=== PATIENT | female | born 1940 | race Caucasian/White ===

== ENCOUNTER → 2016-08-11 | Day surgery (SDC) | payer MEDICARE, OTHER ==
[~2016-08-11] MED LIST: ACETAMINOPHEN PO; ADVAIR 1001 DISK W/D INH; ALLEGRA PO; ASPIRIN PO; CALCIUM 500 + D1 TAB; COREG PO; LIPITOR PO; NITROGLYGERIN0.4 MG SL; NORVASC PO; OYSTER CALCIUM500 MG PO; OYSTER SHELL C1 EAC1 PO; PREMARIN; PROTONIX20 MG PO; TYLENOL EXTRA500 M1 PO; VIT E PO; VITAMIN C PO; VITAMIN C1000 M2 PO; VITAMIN D 4001 UDTAB PO; VITAMIN D31000 UNIT PO; VITAMIN D35000 UNIT PO; VITAMIN D5000 UNIT PO; VITAMIN D50000 UNIT PO
--- NOTE | ~2016-08-11 | OR ---
Unit #: [id number] #: [id number] Patient: LAISHA FIGUEROA [id number] [address] [address] [id number] O MR#: [id number] NAME: LAISHA FIGUEROA ROOM: Date of Procedure: 08/11/2016 Admission Date: 08/11/2016 Surgeon: Mason Chapa M.D. : 1940 Attending Physician: Mason Chapa M.D. Primary Care Physician: Janie Walton M.D. [facility]ENTER OPERATIVE NOTE PROCEDURE PERFORMED Lumbar epidural steroid injection under x-ray guided needle placement with provider administered conscious sedation. PREOPERATIVE DIAGNOSES 1. Acute lumbar radiculitis. 2. Spinal stenosis, lumbosacral spine. 3. Degenerative joint disease, lumbosacral spine. 4. Degenerative disk disease, lumbosacral spine. INDICATIONS FOR PROCEDURE The patient presents today with longstanding history of chronic lumbar radicular pain secondary to her underlying degenerative processes. She is generally fairly well managed medically, but does occasionally experience exacerbations, which to date have only responded to epidural steroid injections. Her usual amount of relief is 80% for approximately 8 to 10 weeks. She presents today with a history of equal relief from her epidural steroid injection approximately 3 months ago. Over the course of the past 2 to 4 weeks, she is experiencing crescendo pattern return of her pain in her usual pattern, which had broken through her ongoing continuous conservative measures. It has reached a point where it is now negatively impacting her activities of daily living. She presents today requesting an epidural steroid injection. After discussing risks and benefits of proceeding today with a lumbar approach epidural steroid injection, the patient agreed this would be appropriate course of action. DESCRIPTION OF PROCEDURE She was then taken to the operating room, where she was prepped and draped in a sterile manner. Standard monitors were applied. She was sedated with 2 mg of IV Versed and lumbar epidural space accessed at the L4-L5 level using loss of resistance technique and x-ray guidance. Needle placement was confirmed with injection of 2 mL of Omnipaque. Following successful needle placement confirmation, the patient received an injectate containing 4 mL normal saline and 80 mg of methylprednisolone. She tolerated this procedure well. She was discharged home with followup instructions, which include an offer to return to this clinic as early as 11/03/2016 if we could be of further service to her. Dictated by... Rogerio Christopher/rain Unit #: [id number] #: [id number] Patient: LAISHA FIGUEROA TD: 08/12/2016 00:03 JOB #: [id number] [facility] OPERATIVE NOTE Page 1 of 1 X Noel Chapa MD X PROCEDURE OPERATIVE NOTE
== END | disposition home or self-care (01) ==
LOC: CCSC 09:16
DX: G89.29 Other chronic pain (principal); M51.17 Intervertebral disc disorders with radiculopathy, lumbosacral region; M48.07 Spinal stenosis, lumbosacral region
CPT/HCPCS: J1040; J2250

== ENCOUNTER → 2016-11-03 | Day surgery (SDC) | payer MEDICARE, OTHER ==
--- NOTE | ~2016-11-03 | OR ---
Unit #: [id number] #: [id number] Patient: LAISHA FIGUEROA [id number] [address] [place], [place] [address] [id number] O MR#: [id number] NAME: LAISHA FIGUEROA ROOM: Date of Procedure: 11/03/2016 Admission Date: 11/03/2016 Surgeon: Mason Chapa M.D. : 1940 Attending Physician: Noel Chapa Primary Care Physician: Janie Walton M.D. [facility]ENTER OPERATIVE NOTE PROCEDURE PERFORMED Lumbar epidural steroid injection under x-ray guided needle placement with provider administered conscious sedation. PREOPERATIVE DIAGNOSES 1. Acute lumbar radiculitis. 2. Spinal stenosis, lumbosacral spine. 3. Degenerative joint disease, lumbosacral spine. 4. Degenerative disk disease, lumbosacral spine. INDICATIONS FOR PROCEDURE The patient presents today with longstanding history of chronic lumbar radicular pain secondary to her underlying degenerative processes. She is generally fairly well managed medically with ongoing continuous therapy consisting of medications and self-directed activity. She does occasionally experience exacerbations, which break through her ongoing continuous measures and to date have only responded to epidural steroid injections. Her usual amount of relief is approximately 80% to 100% for 6 to 8 weeks. She presents today having just such an exacerbation which is consistent with past exacerbations and is advancing in a crescendo pattern again breaking through her ongoing continuous measures. After discussing risks and benefits of proceeding today with a lumbar approach epidural steroid injection, the patient agreed this would be the appropriate course of action. DESCRIPTION OF PROCEDURE She was then taken to the operating room, where she was prepped and draped in sterile manner. Standard monitors were applied. She was sedated with 2 mg of IV Versed and required an additional 1 mL of IV fentanyl throughout the duration of procedure. Lumbar epidural space accessed at L4-L5 level using loss of resistance technique and x-ray guidance. Needle placement was confirmed with injection of 2 mL of Omnipaque. There was good superior and inferior flow at this L4-L5 needle placement. Following successful needle placement at the L4-L5 level with a total x-ray time of 7 seconds, the patient received an injectate containing 4 mL normal saline and 80 mg of methylprednisolone. She tolerated this procedure well. She was discharged home with followup instructions, which include an offer to return to this clinic on 01/10/2017 if we could be of further service to her. Dictated by... Mason Chapa M.D. Unit #: [id number] #: [id number] Patient: LAISHA FIGUEROA JRG/modl TD: 11/03/2016 14:11 JOB #: [id number] [facility] OPERATIVE NOTE Page 1 of 1 X Noel Chapa MD X PROCEDURE OPERATIVE NOTE
== END | disposition home or self-care (01) ==
LOC: CCSC 12:07
DX: G89.29 Other chronic pain (principal); M51.17 Intervertebral disc disorders with radiculopathy, lumbosacral region; M48.07 Spinal stenosis, lumbosacral region; M47.27 Other spondylosis with radiculopathy, lumbosacral region; I25.10 Atherosclerotic heart disease of native coronary artery without angina pectoris; J43.9 Emphysema, unspecified; I50.9 Heart failure, unspecified; Z85.41 Personal history of malignant neoplasm of cervix uteri; Z85.828 Personal history of other malignant neoplasm of skin; Z87.442 Personal history of urinary calculi; Z88.8 Allergy status to other drugs, medicaments and biological substances; Z79.82 Long term (current) use of aspirin; Z79.51 Long term (current) use of inhaled steroids; Z79.899 Other long term (current) drug therapy; Z90.49 Acquired absence of other specified parts of digestive tract; Z90.710 Acquired absence of both cervix and uterus; Z96.29 Presence of other otological and audiological implants; Z98.890 Other specified postprocedural states
CPT/HCPCS: J1040; J2250; J3010

== ENCOUNTER → 2017-01-10 | Day surgery (SDC) | payer MEDICARE, OTHER ==
--- NOTE | ~2017-01-10 | OR ---
Unit #: [id number] #: [id number] Patient: LAISHA FIGUEROA [id number] [address] [place], [place] [address] [id number] O MR#: [id number] NAME: LAISHA FIGUEROA. ROOM: Date of Procedure: 01/10/2017 Admission Date: 01/10/2017 Surgeon: Mason Chapa M.D. : 1940 Attending Physician: Noel Chapa Primary Care Physician: Janie Walton M.D. [facility] CENTER OPERATIVE NOTE PROCEDURE PERFORMED Lumbar epidural steroid injection under x-ray guided needle placement with provider administered conscious sedation. PREOPERATIVE DIAGNOSES 1. Acute lumbar radiculitis. 2. Spinal stenosis, lumbosacral spine. 3. Degenerative joint disease, lumbosacral spine. 4. Degenerative disk disease, lumbosacral spine. INDICATIONS FOR PROCEDURE The patient presents today with longstanding history of chronic lumbar radicular pain secondary to her underlying degenerative processes. She is generally fairly well managed medically, but does occasionally experience exacerbations, which breakthrough her ongoing continuous measures, which include medical management and self-directed physical activity. She is currently experiencing just such an exacerbation. Her usual amount of relief is 60% to 80% with occasional improvement to 100% for 6 to 8 weeks. She presents today with a 2-week history of exacerbation, which is advancing in a crescendo pattern and has begun to negatively impact her activities of daily living. This exacerbation is consistent with previous patterns as well as her x-ray studies. After discussing risks and benefits of proceeding today with a lumbar approach epidural steroid injection with the potential for a dual needle technique, the patient agreed this would be the appropriate course of action. DESCRIPTION OF PROCEDURE She was then taken to the operating room, where she was prepped and draped in a sterile manner. Standard monitors were applied. She was sedated with 2 mg of IV Versed and lumbar epidural space accessed at the L4-L5 level. Dye flow at this L4-L5 access point was predominantly approximately 80% in the inferior direction. Therefore, dual needle access was chosen. A second needle was placed at the L2-L3 level. Dye flow at this point was approximately 80% in the superior direction; however, there was some L3-L4 coverage which was considered acceptable. Following successful needle placement at the L2-L3 and the L4-L5 level, the patient received an injectate at the L4-L5 level with 2 mL of normal saline and 40 mg of methylprednisolone and at the L2-L3 level, 4 mL of normal saline and 40 mg of methylprednisolone for a total injectate volume today of 6 mL normal saline and 80 mg of methylprednisolone. She tolerated this procedure well. She was discharged home with followup instructions, which include an offer to return to this clinic as early as 03/28/2017. At that point, we will most likely access the epidural space Unit #: [id number] #: [id number] Patient: LAISHA FIGUEROA at the L3-L4 level with the potential second access depending upon dye flow at this L3-L4 needle placement. Dictated by... Rogerio Christopher/rain TD: 01/10/2017 11:53 JOB #: [id number] [facility] OPERATIVE NOTE Page 1 of 1 X Noel Chapa MD X PROCEDURE OPERATIVE NOTE
== END | disposition home or self-care (01) ==
LOC: CCSC 09:00
DX: G89.29 Other chronic pain (principal); M51.17 Intervertebral disc disorders with radiculopathy, lumbosacral region; M47.27 Other spondylosis with radiculopathy, lumbosacral region; M48.07 Spinal stenosis, lumbosacral region; I25.10 Atherosclerotic heart disease of native coronary artery without angina pectoris; I50.9 Heart failure, unspecified; J43.9 Emphysema, unspecified; M19.90 Unspecified osteoarthritis, unspecified site; Z87.442 Personal history of urinary calculi; Z85.41 Personal history of malignant neoplasm of cervix uteri; Z88.8 Allergy status to other drugs, medicaments and biological substances; Z79.82 Long term (current) use of aspirin; Z79.51 Long term (current) use of inhaled steroids; Z79.899 Other long term (current) drug therapy; Z90.710 Acquired absence of both cervix and uterus; Z95.5 Presence of coronary angioplasty implant and graft; Z98.890 Other specified postprocedural states
CPT/HCPCS: J1040; J2250